=== PATIENT | female | born 1960 | race Caucasian/White ===

== ENCOUNTER → 2023-08-21 08:06 | Outpatient (REF) | payer OTHER, SELFPAY | LOC: RCS 08:06 | PROVIDERS: ATTENDING PHYSICIAN Internal Medicine Cardiovascular Disease; FAMILY PHYSICIAN Family Medicine | DX: I44.30 Unspecified atrioventricular block (principal); R06.02 Shortness of breath; Z95.0 Presence of cardiac pacemaker | CPT/HCPCS: 93306 ==

== ENCOUNTER → 2023-12-23 07:03 | Outpatient (REF) | payer OTHER, SELFPAY | LOC: HWWDC 07:03 | PROVIDERS: ATTENDING PHYSICIAN Nurse Practitioner Adult Health; FAMILY PHYSICIAN Family Medicine | DX: Z12.31 Encounter for screening mammogram for malignant neoplasm of breast (principal) | CPT/HCPCS: 77063; 77067 ==

== ENCOUNTER 2024-03-17 11:46 | Emergency (ER) | payer OTHER, SELFPAY ==
[2024-03-17 11:52] VITALS: BP 166/89
[2024-03-17 14:23] VITALS: BP 132/77
--- NOTE | 2024-03-17 16:13 | ED.GENMED ---
History of Present Illness
General
Chief Complaint: Pneumonia Symptoms
Source: patient
Exam Limitations: none
Time Seen by Provider: 03/17/24 16:03
Nursing documentation reviewed up to this point in time: agreed with
History of Present Illness
History of Present Illness:
63-year-old female with past medical history of GERD hypothyroidism presenting to the emergency department today with concerns of ongoing cough. Diagnosed with pneumonia 10 days ago initially felt better over the past 3 days she has noticed
increased coughing and nasal congestion. Denies specific fevers does have some left-sided chest wall discomfort specifically with coughing. Seem to occur abruptly with a heavy cough last night.
Past History
Past History
ED Past Medical History: GERD, Hypothyroidism and Other (Lupus)
ED Past Surgical History: Other
Social History
Tobacco: Non-smoker
Alcohol: Occasional
Drug: None
Personal:
Living: with family
Review of Systems
Review of Systems
Allergies reviewed?: Yes
All Other Systems: ROS reviewed and negative except as documented in HPI and ROS
Phy Exam
Physical Exam
Physical Exam:
GENERAL: Alert , in no apparent distress
EYE: pupils equal and reactive
NECK: Supple, no significant adenopathy.
ENT: Swollen boggy nasal turbinates
CARDIAC: Regular rate and rhythm .
LUNGS: Clear breath sounds bilaterally, no acute respiratory distress, no wheezes/rales/rhonchi
ABDOMEN: Soft, without focal tenderness, no r/g, no cvat
NEUROLOGICAL: Alert and oriented, no focal neuro deficits
SKIN: Warm and dry, skin intact.
MUSCULOSKELETAL: No edema, well perfused.
PSYCH: Normal and appropriate interaction.
Course
Orders/Labs/Results
Orders:
Orders
03/17/24 11:56
Electrocardiogram (*1) Urgent
Reason for Study: Chest Pain
CR Chest - 2 Views Urgent
Comment:
Reason For Exam: sob/cough
03/17/24 11:57
EKG- Treatment ONCE
Vital Signs
Initial and Last Documented VS:
Initial Vital Signs
Temp Pulse Resp BP Pulse Ox
98.6 F 84 20 166/89 96
03/17/24 11:52 03/17/24 11:52 03/17/24 11:52 03/17/24 11:52 03/17/24 11:52
Last Documented Vital Signs
Temp Pulse Resp BP Pulse Ox
99.1 F 71 18 132/77 97
03/17/24 14:23 03/17/24 14:23 03/17/24 14:23 03/17/24 14:23 03/17/24 14:23
MDM/Problems Addressed
MDM/Problems Addressed:
63-year-old female presenting to the emergency department today with concerns of worsening cough over the past few days. Diagnosed with pneumonia about 10 days ago was given steroids and antibiotics that seem to improve symptoms. Recurrence of
cough over the past few days. Here generally well-appearing blood pressure elevated otherwise vital signs are normal. No normal pulse ox. Chest x-ray performed without acute abnormalities EKG without emergent findings. Patient with a hacking
cough throughout examination. Lungs are clear. Does have some evidence of inflammation of the upper airway. Patient with a URI. Plan for symptomatic treatment otherwise close follow-up as needed.
*Critical Care Note
Total Time (30-74mins, 75-104mins- exclusive of procedures): Not Applicable
ED Attending Note
-
Portions of this chart may have been created with voice recognition software.� Occasional wrong word or��sound alike� substitutions may have occurred due to the inherent limitations of voice recognition software.
Discharge Plan
Departure
Patient Disposition: Home (Routine Discharge)
Date of Disposition: 03/17/24
Time of Disposition: 16:14
Patient with high blood pressure during this ER visit?: No
Condition: Good
Covid-19: Not Applicable
Discharge Problem:
URI (upper respiratory infection)
Instructions: Acute Bronchitis, Adult (DC)
Prescriptions:
New
guaifenesin 200 mg tablet
200 mg PO QID PRN (Reason: Congestion) Qty: 10 0RF
albuterol sulfate 90 mcg/actuation HFA aerosol inhaler
2 puff inhalation Q6H PRN (Reason: shortness of breath or wheezing) Qty: 8.5 0RF
No Action
hydroxychloroquine 200 mg Tablet
200 mg PO .5 DAYS A WEEK
omeprazole magnesium [Prilosec OTC] 20 mg Tablet,Delayed Release (Dr/Ec)
20 mg PO DAILY
hydroxychloroquine 200 mg tablet
400 mg PO .2 DAYS A WEEK
amlodipine 5 mg Tablet
5 mg PO DAILY Qty: 90 5RF
Referrals:
Sandie Villatoro MD [Family Provider] -
Activity Restrictions/Additional Instructions:
You came to the emergency department today with concerns of ongoing cough. Here you had a reassuring assessment with normal chest x-ray and EKG. Please take the prescribed medications and your previously prescribed steroids. Return for any
worsening, new or concerning symptoms.
Interventions
Interventions:
*Risk Screen - Suicide Last Done: 03/17/24 11:52
*General Assessment Last Done: 03/17/24 11:52
*Neglect/Abuse Screening Last Done: 03/17/24 11:52
ED- Fall Risk Assessment Last Done: 03/17/24 16:06
ED- Cardiac Assessment Last Done: 03/17/24 16:06
ED- Pulmonary Assessment Last Done: 03/17/24 16:06
Discharge Date and Time
Print Language: BOLIVIAN
[2024-03-17 16:25] VITALS: BP 140/76
== END 2024-03-17 16:26 | disposition home or self-care (01) ==
LOC: EMR 11:46
PROVIDERS: EMERGENCY PHYSICIAN Emergency Medicine; FAMILY PHYSICIAN Family Medicine
DX: J06.9 Acute upper respiratory infection, unspecified (principal); J18.9 Pneumonia, unspecified organism; E03.9 Hypothyroidism, unspecified; K21.9 Gastro-esophageal reflux disease without esophagitis; M32.9 Systemic lupus erythematosus, unspecified; Z95.0 Presence of cardiac pacemaker
CPT/HCPCS: 99283; 71046; 93005

== ENCOUNTER → 2024-10-28 08:01 | Outpatient (REF) | payer OTHER, SELFPAY | LOC: MRI 08:01 | PROVIDERS: ATTENDING PHYSICIAN Internal Medicine Cardiovascular Disease; FAMILY PHYSICIAN Family Medicine | DX: I44.30 Unspecified atrioventricular block (principal) | CPT/HCPCS: 75561; 75565; A9585 ==

== ENCOUNTER → 2024-11-20 07:38 | Outpatient (REF) | payer OTHER, SELFPAY | LOC: HWRCS 07:38 | PROVIDERS: ATTENDING PHYSICIAN Internal Medicine Cardiovascular Disease; FAMILY PHYSICIAN Family Medicine | DX: I42.9 Cardiomyopathy, unspecified (principal); Z95.0 Presence of cardiac pacemaker | CPT/HCPCS: 78452; 93017; A9500; J2785 ==

== ENCOUNTER → 2024-11-23 13:13 | Outpatient (REF) | payer OTHER, SELFPAY | LOC: HWRAD 13:13 | PROVIDERS: ATTENDING PHYSICIAN Nurse Practitioner Adult Health; FAMILY PHYSICIAN Family Medicine | DX: E04.1 Nontoxic single thyroid nodule (principal) | CPT/HCPCS: 76536 ==

== ENCOUNTER → 2024-12-15 07:38 | Outpatient (REF) | payer OTHER, SELFPAY | LOC: RSP 07:38 | PROVIDERS: ATTENDING PHYSICIAN Internal Medicine Rheumatology; FAMILY PHYSICIAN Family Medicine | DX: R06.02 Shortness of breath (principal); R09.89 Other specified symptoms and signs involving the circulatory and respiratory systems | CPT/HCPCS: 88738; 94010; 94727; 94729 ==

== ENCOUNTER → 2025-01-01 08:34 | Outpatient (REF) | payer OTHER, SELFPAY | LOC: HWRAD 08:34 | PROVIDERS: ATTENDING PHYSICIAN Internal Medicine Rheumatology; FAMILY PHYSICIAN Family Medicine | DX: L93.1 Subacute cutaneous lupus erythematosus (principal); R06.02 Shortness of breath; R09.89 Other specified symptoms and signs involving the circulatory and respiratory systems | CPT/HCPCS: 71046 ==

== ENCOUNTER → 2025-01-27 07:55 | Outpatient (REF) | payer OTHER, SELFPAY | LOC: HWWDC 07:55 | PROVIDERS: ATTENDING PHYSICIAN Nurse Practitioner Adult Health; FAMILY PHYSICIAN Family Medicine | DX: Z12.31 Encounter for screening mammogram for malignant neoplasm of breast (principal) | CPT/HCPCS: 77063; 77067 ==